=== PATIENT | male | born 1960 | race Caucasian/White ===

== ENCOUNTER 2019-07-14 | Emergency (ER) | payer SELFPAY ==
[~2019-07-14] MED LIST: ASPIRIN EC81 MG PO; CENTRUM OR; CEPHALEXIN500 MG PO; CIPROFLOXACN500 MG PO; CLOPIDOGREL75 MG PO; FENOFIBRATE145 MG PO; HYDRALAZINE25 MG PO; LIPITOR40 MG PO; LOPRESSOR 550 MG/TAB PO; METOPROLOL25 M1 OR; OMEGA-31000 MG OR; RESTORIL15 MG PO; TAMSULOSIN HCL0.4 MG PO; ULTRAM50 MG PO; ZANTAC150 MG OR; ZITHROMAX250 MG PO
[2019-07-14] MEDS ORDERED: AMLODIPINE PO (11:05)
[2019-07-14 11:53] LABS: IMMATURE GRANULOCYTES 0.7 % (0.0-5.0); MEAN CELL VOLUME 84.3 fL CALC (80.0-100.0); MEAN CORPUSCULAR HGB 28.1 pG CALC (26.0-32.0); MEAN CORPUSCULAR HGB CONC 33.3 g/L CALC (32.0-36.0); NEUT# 7.17 thou/uL (1.82-7.42); RED BLOOD COUNT 5.59 mill/uL (4.70-6.10); RED CELL DISTRI WIDTH 14.8 % (11.5-15.5); URINE BILIRUBIN - DIPSTICK NEGATIVE (NEGATIVE); URINE BLOOD DIPSTICK SMALL (NEGATIVE); URINE COLOR YELLOW; URINE GLUCOSE - DIPSTICK NEGATIVE (NEGATIVE); URINE KETONE NEGATIVE (NEGATIVE); URINE LEUK ESTERASE NEGATIVE (NEGATIVE); URINE NITRITE - DIPSTICK NEGATIVE (Negative); URINE PROTEIN - DIPSTICK 100 mg/dL (NEG-TRACE); URINE UROBILINOGEN - DIPSTICK 0.2 E.U./dL (0.2)
[2019-07-14 11:54] LABS: HEMATOCRIT 47.1 % (39.0-50.0); HEMOGLOBIN 15.7 g/dl (14.0-18.0)
[2019-07-14 12:06] LABS: URINE RBC 0-2 RBC/hpf (0-5); URINE WBC 0-2 WBC/hpf (0-5)
[2019-07-14 12:16] LABS: ALKALINE PHOSPHATASE 67 u/l (38-126); AMYLASE 223 u/l (30-110); BUN 39 mg/dL (9-20); BUN/CREATININE RATIO 19 (12-20 (CALC)); CARBON DIOXIDE 21 mmol/l (22-30); CHLORIDE 104 mmol/l (95-108); GFR 35 ML/MIN (>=60 (CALC)); GFR FOR AFR.AMER. 42 ML/MIN (>=60 (CALC)); LIPASE 428 u/l (23-300); SODIUM 135 mmol/l (137-146); TOTAL PROTEIN 7.4 g/dL (6.3-8.2)
[2019-07-14 12:26] LABS: MYOGLOBIN 157 ng/mL (0 - 121)
[2019-07-14 12:27] LABS: ALBUMIN 4.3 g/dL (3.2-5.0); ANION GAP 15 (6-22 (CALC)); BILIRUBIN, TOTAL 0.6 mg/dL (0.0-1.4); POTASSIUM 4.9 mmol/l (3.5-5.1); SGOT/AST 33 u/l (17-59)
[2019-07-14] MEDS ORDERED: ZOFRAN4 MG/TAB PO (13:41)
== END 2019-07-14 14:01 | disposition home or self-care (01) | DRG 440 ==
PROVIDERS: Family Medicine
DX: K85.90 Acute pancreatitis without necrosis or infection, unspecified (principal); I10 Essential (primary) hypertension

== ENCOUNTER 2020-05-22 16:50 | Emergency (ER) | payer SELFPAY ==
[~2020-05-22] VITALS: Ht 182.9 cm; Wt 73.0 kg
[~2020-05-22 16:50] MED LIST changes: +AMLODIPINE PO; +ZOFRAN4 MG/TAB PO
[2020-05-22 18:05] LABS: URINE BILIRUBIN - DIPSTICK NEGATIVE (NEGATIVE); URINE BLOOD DIPSTICK SMALL (NEGATIVE); URINE CLARITY CLEAR; URINE COLOR YELLOW; URINE GLUCOSE - DIPSTICK NEGATIVE (NEGATIVE); URINE KETONE NEGATIVE (NEGATIVE); URINE LEUK ESTERASE NEGATIVE (Negative); URINE NITRITE - DIPSTICK NEGATIVE (Negative); URINE PH 5.5 (4.5-8.0); URINE PROTEIN - DIPSTICK 100 mg/dL (NEG-TRACE); URINE SPECIFIC GRAVITY 1.025; URINE UROBILINOGEN - DIPSTICK 0.2 E.U./dL (0.2)
[2020-05-22 18:06] LABS: URINE RBC 0-2 RBC/hpf (0-5); URINE WBC 0-2 WBC/hpf (0-5)
[2020-05-22] MEDS ORDERED: TRAMADOL HYDROC50 M1 PO (18:25)
[2020-05-22 18:43] VITALS: BP 164/81
== END 2020-05-22 19:04 | disposition home or self-care (01) | DRG 552 ==
LOC: ED 16:50
DX: M54.5 Low back pain (principal); I10 Essential (primary) hypertension; F17.200 Nicotine dependence, unspecified, uncomplicated

== ENCOUNTER 2020-06-18 23:17 | Emergency (ER) | payer SELFPAY ==
[~2020-06-18] VITALS: Ht 182.9 cm; Wt 75.0 kg
[~2020-06-18 23:17] MED LIST changes: +TRAMADOL HYDROC50 M1 PO
[2020-06-19 00:04] LABS: IMMATURE GRANULOCYTES 0.3 % (0.0-5.0); MEAN CELL VOLUME 86.5 fL CALC (80.0-100.0); MEAN CORPUSCULAR HGB 28.5 pG CALC (26.0-32.0); MEAN CORPUSCULAR HGB CONC 32.9 g/dL CAL (32.0-36.0); NEUT# 7.51 thou/uL (1.82-7.42); RED BLOOD COUNT 4.67 mill/uL (4.70-6.10); RED CELL DISTRI WIDTH 14.4 % (11.5-15.5)
[2020-06-19 00:07] LABS: HEMATOCRIT 40.4 % (39.0-50.0); HEMOGLOBIN 13.3 g/dl (14.0-18.0)
[2020-06-19 00:08] LABS: URINE BILIRUBIN - DIPSTICK NEGATIVE (NEGATIVE); URINE BLOOD DIPSTICK SMALL (NEGATIVE); URINE COLOR YELLOW; URINE GLUCOSE - DIPSTICK NEGATIVE (NEGATIVE); URINE KETONE NEGATIVE (NEGATIVE); URINE NITRITE - DIPSTICK NEGATIVE (Negative); URINE PROTEIN - DIPSTICK 100 mg/dL (NEG-TRACE); URINE SPECIFIC GRAVITY 1.025; URINE UROBILINOGEN - DIPSTICK 0.2 E.U./dL (0.2)
[2020-06-19 00:09] LABS: URINE LEUK ESTERASE NEGATIVE (NEGATIVE)
[2020-06-19 00:12] LABS: URINE BACTERIA FEW hpf; URINE EPITHELIAL CELLS FEW EPI/hpf (0-FEW); URINE MUCUS FEW hpf (NONE-FEW)
[2020-06-19 00:22] LABS: ALBUMIN 3.8 g/dL (3.2-5.0); POTASSIUM 4.1 mmol/l (3.5-5.1); TOTAL PROTEIN 6.4 g/dL (6.3-8.2)
[2020-06-19 00:27] LABS: BILIRUBIN, TOTAL 0.3 mg/dL (0.0-1.4)
[2020-06-19] MEDS ORDERED: ZOFRAN4 MG/TAB PO (02:08)
[2020-06-19] MEDS ORDERED: CIPROFLOXACN500 MG PO (02:08)
[2020-06-19 02:27] VITALS: BP 154/71
[2020-06-19] MEDS ORDERED: LOPRESSOR 550 MG/TAB PO (08:01)
[2020-06-19] MEDS ORDERED: AMLODIPINE BESY10 MG PO (08:02)
== END 2020-06-19 02:30 | disposition home or self-care (01) | DRG 392 ==
LOC: ED 23:17
PROVIDERS: Emergency Medicine
DX: R11.2 Nausea with vomiting, unspecified (principal); Q61.3 Polycystic kidney, unspecified; K50.10 Crohn's disease of large intestine without complications; I12.9 Hypertensive chronic kidney disease with stage 1 through stage 4 chronic kidney disease, or unspecified chronic kidney disease; N18.9 Chronic kidney disease, unspecified; F17.200 Nicotine dependence, unspecified, uncomplicated; Z20.822 Contact with and (suspected) exposure to COVID-19

== ENCOUNTER 2020-06-19 07:22 | Observation (INO) | payer SELFPAY ==
[~2020-06-19] VITALS: Ht 182.9 cm; Wt 74.8 kg
[2020-06-19] MEDS ORDERED: LOPRESSOR 550 MG/TAB PO (08:01)
[2020-06-19] MEDS ORDERED: AMLODIPINE BESY10 MG PO (08:02)
[2020-06-19 08:34] LABS: IMMATURE GRANULOCYTES 0.4 % (0.0-5.0); MEAN CELL VOLUME 86.7 fL CALC (80.0-100.0); MEAN CORPUSCULAR HGB 28.2 pG CALC (26.0-32.0); MEAN CORPUSCULAR HGB CONC 32.6 g/dL CAL (32.0-36.0); NEUT# 10.77 thou/uL (1.82-7.42); RED BLOOD COUNT 4.96 mill/uL (4.70-6.10); RED CELL DISTRI WIDTH 14.6 % (11.5-15.5)
[2020-06-19 09:42] LABS: BILIRUBIN, TOTAL 0.4 mg/dL (0.0-1.4); CREATININE 2.8 mg/dL (0.7-1.3); POTASSIUM 4.3 mmol/l (3.5-5.1); TOTAL PROTEIN 7.2 g/dL (6.3-8.2)
[2020-06-19 11:22] VITALS: BP 159/90
[2020-06-19 19:00] VITALS: BP 177/89
[2020-06-19 22:25] LABS: URINE BILIRUBIN - DIPSTICK NEGATIVE (NEGATIVE); URINE BLOOD DIPSTICK SMALL (NEGATIVE); URINE COLOR YELLOW; URINE GLUCOSE - DIPSTICK NEGATIVE (NEGATIVE); URINE KETONE NEGATIVE (NEGATIVE); URINE LEUK ESTERASE NEGATIVE (NEGATIVE); URINE NITRITE - DIPSTICK NEGATIVE (Negative); URINE PROTEIN - DIPSTICK 100 mg/dL (NEG-TRACE); URINE SPECIFIC GRAVITY 1.025; URINE UROBILINOGEN - DIPSTICK 0.2 E.U./dL (0.2)
[2020-06-19 22:45] LABS: URINE WBC 0-2 WBC/hpf (0-5)
[2020-06-19 23:33] VITALS: BP 154/79
[2020-06-20 04:00] VITALS: BP 136/72
[2020-06-20 05:16] LABS: HEMATOCRIT 38.1 % (39.0-50.0); HEMOGLOBIN 12.3 g/dl (14.0-18.0); IMMATURE GRANULOCYTES 0.2 % (0.0-5.0); MEAN CELL VOLUME 87.6 fL CALC (80.0-100.0); MEAN CORPUSCULAR HGB 28.3 pG CALC (26.0-32.0); MEAN CORPUSCULAR HGB CONC 32.3 g/dL CAL (32.0-36.0); NEUT# 6.09 thou/uL (1.82-7.42); RED BLOOD COUNT 4.35 mill/uL (4.70-6.10); RED CELL DISTRI WIDTH 14.4 % (11.5-15.5)
[2020-06-20 05:32] LABS: ALBUMIN 3.2 g/dL (3.2-5.0); BILIRUBIN, TOTAL 0.3 mg/dL (0.0-1.4); CREATININE 2.9 mg/dL (0.7-1.3); MAGNESIUM 1.6 mg/dL (1.6-2.3); POTASSIUM 4.1 mmol/l (3.5-5.1)
[2020-06-20 05:42] LABS: TOTAL PROTEIN 5.6 g/dL (6.3-8.2)
[2020-06-20 07:15] VITALS: BP 136/70
[2020-06-20 09:12] VITALS: BP 136/70
== END 2020-06-20 11:30 | disposition home or self-care (01) | DRG 386 ==
LOC: ED 07:22 → ED-I 09:50 → ED 10:12 → MS2 10:13
PROVIDERS: Family Medicine; Nurse Practitioner; ADMIT Internal Medicine; ATTEND Internal Medicine
DX: K50.10 Crohn's disease of large intestine without complications (principal); Q61.3 Polycystic kidney, unspecified; I12.9 Hypertensive chronic kidney disease with stage 1 through stage 4 chronic kidney disease, or unspecified chronic kidney disease; N18.9 Chronic kidney disease, unspecified; F17.200 Nicotine dependence, unspecified, uncomplicated; Z23 Encounter for immunization; Z20.822 Contact with and (suspected) exposure to COVID-19
CPT/HCPCS: G0378

== ENCOUNTER 2023-06-17 06:03 | Emergency (ER) | payer MEDICARE, MEDICAID ==
[~2023-06-17] VITALS: Ht 182.9 cm; Wt 70.0 kg
[2023-06-17] VITALS (16 sets, daily range): BP systolic 139–198; BP diastolic 77–124
[~2023-06-17 06:03] MED LIST changes: +AMLODIPINE BESY10 MG PO
[2023-06-17] MEDS ORDERED: SODIUM CHLORIDE 0.9% 1,000 ML IV STA (06:20)
[2023-06-17] MEDS ORDERED: PROCHLORPERAZINE EDISYLATE 10 MG/2 ML SDV IV ONE (06:25)
[2023-06-17] MEDS ORDERED: DiphenhydrAMINE HCL 50 MG/ML SDV IV ONE (06:25)
[2023-06-17 06:29] LABS: BASO% 0.7 % (0-3); EOS% 5.6 % (0-8); IMMATURE GRANULOCYTES 0.2 % (0.0-5.0); LYMPH% 28.7 % (15-41); MEAN CELL VOLUME 91.4 fL CALC (80.0-100.0); MEAN CORPUSCULAR HGB 29.8 pG CALC (26.0-32.0); MEAN CORPUSCULAR HGB CONC 32.6 g/dL CAL (32.0-36.0); MONO% 7.6 % (2-13); NEUT# 6.97 thou/uL (1.82-7.42); NEUT% 57.2 % (42-76); RED BLOOD COUNT 5.67 mill/uL (4.70-6.10); RED CELL DISTRI WIDTH 15.1 % (11.5-15.5)
[2023-06-17] MEDS ORDERED: LABETALOL HCL 20 MG/ 4 ML CARTRG IV ONE (06:35)
[2023-06-17 06:36] LABS: HEMATOCRIT 51.8 % (39.0-50.0); HEMOGLOBIN 16.9 g/dl (14.0-18.0)
[2023-06-17 06:41] LABS: POTASSIUM 4.5 mmol/l (3.5-5.1)
[2023-06-17 06:43] LABS: ALBUMIN 4.7 g/dL (3.2-5.0); BILIRUBIN, TOTAL 0.5 mg/dL (0.2-1.3); MAGNESIUM 2.9 mg/dL (1.6-2.3); TOTAL PROTEIN 7.2 g/dL (6.3-8.2)
[2023-06-17 06:44] LABS: CREATININE 10.5 mg/dL (0.7-1.3)
[2023-06-17] MEDS ORDERED: LORazepam 1 MG/TAB PO ONE (07:15)
[2023-06-17 07:21] LABS: URINE BILIRUBIN - DIPSTICK Negative (NEGATIVE); URINE BLOOD DIPSTICK Small (NEGATIVE); URINE GLUCOSE - DIPSTICK 100 mg/dL (NEGATIVE); URINE KETONE Negative (NEGATIVE); URINE LEUK ESTERASE Negative (NEGATIVE); URINE NITRITE - DIPSTICK Negative (Negative); URINE PROTEIN - DIPSTICK 100 mg/dL (NEG-TRACE); URINE UROBILINOGEN - DIPSTICK 0.2 E.U./dL (0.2)
[2023-06-17 07:22] LABS: URINE COLOR Yellow
[2023-06-17 07:33] LABS: URINE HYALINE CAST FEW lpf (NONE-RARE); URINE RBC 0-2 RBC/hpf (0-5); URINE SQUAMOUS EPITHELIAL CELL FEW EPI/hpf (0-FEW); URINE WBC 0-2 WBC/hpf (0-5)
== END 2023-06-17 08:56 | disposition home or self-care (01) ==
LOC: ED 06:03
PROVIDERS: Family Medicine
DX: R11.2 Nausea with vomiting, unspecified (principal); F41.9 Anxiety disorder, unspecified; I12.0 Hypertensive chronic kidney disease with stage 5 chronic kidney disease or end stage renal disease; N18.6 End stage renal disease; Z99.2 Dependence on renal dialysis; Z20.822 Contact with and (suspected) exposure to COVID-19

== ENCOUNTER 2023-06-26 07:32 | Emergency (ER) | payer MEDICARE, MEDICAID ==
[2023-06-26] VITALS (9 sets, daily range): BP systolic 111–141; BP diastolic 66–78
[~2023-06-26] VITALS: Ht 182.9 cm; Wt 71.0 kg
[2023-06-26] MEDS ORDERED: LORazepam 1 MG/TAB PO ONE (07:45)
[2023-06-26 08:08] LABS: BASO% 0.6 % (0-3); EOS% 3.7 % (0-8); HEMATOCRIT 52.7 % (39.0-50.0); IMMATURE GRANULOCYTES 0.2 % (0.0-5.0); LYMPH% 20.6 % (15-41); MEAN CELL VOLUME 90.1 fL CALC (80.0-100.0); MEAN CORPUSCULAR HGB 29.1 pG CALC (26.0-32.0); MEAN CORPUSCULAR HGB CONC 32.3 g/dL CAL (32.0-36.0); MONO% 6.9 % (2-13); NEUT# 6.32 thou/uL (1.82-7.42); RED BLOOD COUNT 5.85 mill/uL (4.70-6.10); RED CELL DISTRI WIDTH 14.5 % (11.5-15.5)
[2023-06-26 08:33] LABS: ALBUMIN 4.7 g/dL (3.2-5.0); BILIRUBIN, TOTAL 0.4 mg/dL (0.2-1.3); POTASSIUM 4.8 mmol/l (3.5-5.1); TOTAL PROTEIN 7.2 g/dL (6.3-8.2)
[2023-06-26 08:44] LABS: CREATININE 9.1 mg/dL (0.7-1.3)
[2023-06-26 09:06] LABS: TSH, 3RD GENERATION 2.91 uIU/mL (0.47 - 4.68)
[2023-06-27] MEDS ORDERED: VISTARIL25 MG PO (05:19)
[2023-06-27] MEDS ORDERED: LEXAPRO10 MG PO (05:19)
== END 2023-06-26 09:51 | disposition home or self-care (01) ==
LOC: ED 07:32
PROVIDERS: Family Medicine
DX: F41.9 Anxiety disorder, unspecified (principal); I12.0 Hypertensive chronic kidney disease with stage 5 chronic kidney disease or end stage renal disease; N18.6 End stage renal disease; Z99.2 Dependence on renal dialysis

== ENCOUNTER 2023-06-27 00:14 | Emergency (ER) | payer MEDICARE, MEDICAID ==
[2023-06-27] MEDS ORDERED: VISTARIL25 MG PO (05:19)
[2023-06-27] MEDS ORDERED: LEXAPRO10 MG PO (05:19)
== END 2023-06-27 00:42 | disposition left against medical advice (07) ==
LOC: ED 00:14 → LWOBS 00:42
DX: Z53.21 Procedure and treatment not carried out due to patient leaving prior to being seen by health care provider (principal)

== ENCOUNTER 2023-06-27 04:56 | Emergency (ER) | payer MEDICARE, MEDICAID ==
[~2023-06-27] VITALS: Ht 182.9 cm; Wt 73.0 kg
[2023-06-27] MEDS ORDERED: LORazepam 1 MG/TAB PO ONE (05:15)
[2023-06-27] MEDS ORDERED: ESCITALOPRAM 10 MG/TAB PO ONE (05:15)
[2023-06-27] MEDS ORDERED: VISTARIL25 MG PO (05:19)
[2023-06-27] MEDS ORDERED: LEXAPRO10 MG PO (05:19)
[2023-06-27 06:15] VITALS: BP 127/83
[2023-06-27 06:16] VITALS: BP 127/83
== END 2023-06-27 06:30 | disposition home or self-care (01) ==
LOC: ED 04:56
DX: F41.9 Anxiety disorder, unspecified (principal); I12.0 Hypertensive chronic kidney disease with stage 5 chronic kidney disease or end stage renal disease; N18.6 End stage renal disease; Z99.2 Dependence on renal dialysis